=== PATIENT | female | born 1990 | race Caucasian/White ===

== ENCOUNTER → 2018-05-11 09:16 | Outpatient (CLI) | payer MEDICAID ==
[~2018-05-11] VITALS: Ht 152.4 cm; Wt 100.9 kg
[~2018-05-11 09:16] MED LIST: FAMOTIDINE10 MG PO; LOMOTIL 2.5-0.1 EAC1 PO; ZOFRAN ODT4 MG/UDTAB PO
[2018-05-11 09:20] VITALS: Ht 152.4 cm; Wt 100.9 kg
[2018-05-11 10:06] LABS: BASOPHILS 0.1 % (0-2); EOSINOPHILS 0.6 % (0-7); HEMATOCRIT 38.4 % (36.0-48.0); HEMOGLOBIN 12.9 g/dL (12-16); IMMATURE GRANULOCYTES 0.2 % (0-5); LYMPHOCYTES 15.3 % (15-50); MCH 28.5 pg (26.0-34.0); MCHC 33.6 g/dL (31.0-37.0); MCV 84.8 fL (80.0-100.0); MEAN PLATELET VOLUME 10.2 fL (7.4-10.4); MONOCYTES 6.8 % (2-11); PLATELET COUNT 242 10x3/uL (130-400); RBC 4.53 10x6/uL (4.00-5.40); RDW 13.8 % (11.5-14.5); WBC 8.2 10x3/uL (4.8-10.8)
[2018-05-11 10:13] LABS: ALKALINE PHOSPHATASE 49 U/L (46-116); ALT (SGPT) 13 U/L (10-68); BILIRUBIN - TOTAL 0.52 mg/dL (0.2-1.3); CALC OSMOLALITY 274 mosm/kg (275-300); CALCIUM 8.4 mg/dL (8.5-10.1); CARBON DIOXIDE 22.8 mmol/L (21.0-32.0); CHLORIDE - SERUM 103 mmol/L (98-107); CREATININE - SERUM 0.6 mg/dL (0.6-1.3); GLUCOSE 90 mg/dL (74-106); POTASSIUM - SERUM 3.1 mmol/L (3.5-5.1); PROTEIN - SERUM 7.5 g/dL (6.4-8.2); SODIUM 138 mmol/L (136-145); UREA NITROGEN 9 mg/dL (7-18); eGFR NON AFRICAN AMERICAN > 90 mL/min (90-120)
[2018-05-11 11:04] LABS: APPEARANCE SL CLDY (CLEAR); BACTERIA MODERATE /hpf (NONE SEEN); BILIRUBIN NEGATIVE (NEGATIVE); COLOR YELLOW (YELLOW); EPITHELIAL CELLS 0-5 /hpf (0-5); GLUCOSE NEGATIVE (NEGATIVE); KETONE LARGE mg/dL (NEGATIVE); MUCUS <1+ /lpf (NONE SEEN); NITRITE NEGATIVE (NEGATIVE); PROTEIN TRACE mg/dL (NEGATIVE); RED CELLS - URINE RARE /hpf (0-5); SPECIFIC GRAVITY 1.015 (1.005-1.020); UROBILINOGEN NORMAL (NORMAL); WHITE CELLS - URINE 0-5 /hpf (0-5)
[2018-05-11 12:35] VITALS: BP 140/98
== END | disposition home or self-care (01) ==
LOC: D.LDO 09:16 → D.ER 09:16 → EDSTATUS 11:40
PROVIDERS: Family Medicine
DX: O21.9 Vomiting of pregnancy, unspecified (principal); Z3A.17 17 weeks gestation of pregnancy

== ENCOUNTER → 2018-08-21 12:30 | Outpatient (CLI) | payer MEDICAID ==
[2018-05-11 09:20] VITALS: BMI 43.4
== END | disposition home or self-care (01) ==
LOC: D.LDO 12:30
PROVIDERS: ATTEND Obstetrics & Gynecology
DX: O26.899 Other specified pregnancy related conditions, unspecified trimester (principal)

== ENCOUNTER → 2018-08-25 08:55 | Outpatient (CLI) | payer MEDICAID ==
[2018-05-11 09:20] VITALS: BMI 43.4
== END | disposition home or self-care (01) ==
LOC: D.LDO 08:55
PROVIDERS: ATTEND Obstetrics & Gynecology
DX: O26.899 Other specified pregnancy related conditions, unspecified trimester (principal); Z3A.32 32 weeks gestation of pregnancy

== ENCOUNTER → 2018-08-29 11:12 | Outpatient (CLI) | payer MEDICAID ==
[2018-05-11 09:20] VITALS: BMI 43.4
== END | disposition home or self-care (01) ==
LOC: D.LDO 11:12
PROVIDERS: ATTEND Obstetrics & Gynecology
DX: O13.9 Gestational [pregnancy-induced] hypertension without significant proteinuria, unspecified trimester (principal)

== ENCOUNTER → 2018-09-01 08:59 | Outpatient (CLI) | payer MEDICAID ==
[~2018-09-01 08:59] MED LIST changes: +HYDROCODON-ACE1 EA10 PO; +IBUPROFEN600 MG PO
== END | disposition home or self-care (01) ==
LOC: D.LDO 08:59
DX: O10.913 Unspecified pre-existing hypertension complicating pregnancy, third trimester (principal); Z3A.33 33 weeks gestation of pregnancy

== ENCOUNTER → 2018-09-04 12:22 | Outpatient (CLI) | payer MEDICAID ==
[2018-05-11 09:20] VITALS: BMI 43.4
[~2018-09-04 12:22] MED LIST changes: -HYDROCODON-ACE1 EA10 PO; -IBUPROFEN600 MG PO
== END | disposition home or self-care (01) ==
LOC: D.LDO 12:22
PROVIDERS: ATTEND Obstetrics & Gynecology
DX: O10.013 Pre-existing essential hypertension complicating pregnancy, third trimester (principal); Z3A.34 34 weeks gestation of pregnancy

== ENCOUNTER → 2018-09-08 11:17 | Outpatient (CLI) | payer MEDICAID ==
[2018-05-11 09:20] VITALS: BMI 43.4
== END | disposition home or self-care (01) ==
LOC: D.LDO 11:17
PROVIDERS: ATTEND Obstetrics & Gynecology
DX: O16.3 Unspecified maternal hypertension, third trimester (principal); Z3A.31 31 weeks gestation of pregnancy

== ENCOUNTER → 2018-09-14 12:41 | Outpatient (CLI) | payer MEDICAID ==
[2018-05-11 09:20] VITALS: BMI 43.4
== END | disposition home or self-care (01) ==
LOC: D.LDO 12:41
PROVIDERS: ATTEND Obstetrics & Gynecology
DX: O16.3 Unspecified maternal hypertension, third trimester (principal); Z3A.35 35 weeks gestation of pregnancy

== ENCOUNTER 2018-10-01 01:58 | Inpatient (IN) | payer MEDICAID ==
[~2018-10-01] VITALS: Ht 152.4 cm; Wt 103.9 kg
[2018-10-01] VITALS (8 sets, daily range): BP systolic 93–128; BP diastolic 52–72; Ht 152.4 cm; Wt 103.9 kg
--- NOTE | 2018-10-01 01:48 | NUR ---
PAIN REASSESSMENT COMPLETED, STATES PAIN IS "A LITTLE BETTER." 08/12, DENIES NEEDS AT THIS TIME. CURRENTLY BREAST FEEDING.
[2018-10-01 02:42] LABS: HEMATOCRIT 34.9 % (36.0-48.0); HEMOGLOBIN 11.4 g/dL (12-16); MCH 26.1 pg (26.0-34.0); MCHC 32.7 g/dL (31.0-37.0); MCV 79.9 fL (80.0-100.0); MEAN PLATELET VOLUME 11.1 fL (7.4-10.4); RBC 4.37 10x6/uL (4.00-5.40); WBC 8.8 10x3/uL (4.8-10.8)
[2018-10-01 02:43] LABS: APPEARANCE CLEAR (CLEAR); BILIRUBIN NEGATIVE (NEGATIVE); COLOR YELLOW (YELLOW); GLUCOSE NEGATIVE (NEGATIVE); KETONE SMALL mg/dL (NEGATIVE); NITRITE NEGATIVE (NEGATIVE); PROTEIN NEGATIVE (NEGATIVE); UROBILINOGEN NORMAL (NORMAL)
--- NOTE | 2018-10-01 05:23 | NUR ---
REC'D BACK TO ROOM FROM RECOVERY ROOM. VSS. FUNDUS FIRM, MIDLINE AND U1 WITH SMALL AMT RUBRA LOCHIA, NO CLOTS NOTED. PAIN 3/10, INCISIONAL BURNING AND STINGING, ABD SORENESS AND ACHING. MINIMAL SENSATION AND ROM OF BLE, ABLE TO MOVE BILATERAL FEET. SCD'S ON BLE. 1100 MLS CLEAR LIGHT YELLOW EMPTIED FROM CARMONA. INCISION WELL APPROXIMATED WITH GLUE INTACT, NO DRAINAGE NOTED. PLAN OF CARE DISCUSSED WITH PT AND SPOUSE. NBN CONTACTED AND PT UPDATED ON INFANT.
--- NOTE | 2018-10-01 05:34 | NUR ---
PAIN 3/10, ABD ACHING/CRAMPING/SORENESS AND INCISIONAL BURNING AND STINGING. TORADOL GIVEN PER ORDER AND REQUEST. PT QUESTIONS RN REGARDING RUG CUTTER HELPER, NO ORDERS CURRENTLY IN CHART. PT STATES THAT DR. CANO TOLD HER SHE WOULD HAVE RUG CUTTER HELPER, WILL CONTACT DR. CANO FOR ADDITIONAL ORDERS.
--- NOTE | 2018-10-01 05:43 | NUR ---
DR. CANO PAGED WITH IMMEDIATE CALLBACK REGARDING ORDERS FOR PAIN MANAGEMENT. ORDERS REC'D.
--- NOTE | 2018-10-01 05:58 | NUR ---
PAIN 6/10, INCISIONAL BURNING AND STINGING, ABD CRAMPING/SORENESS. DILAUDAD RAILROAD CAR REPAIR SUPERVISOR INITIATED. PT INSTRUCTED ON USE AND VERBALIZES UNDERSTANDING. DENIES QUESTIONS. REPORTS THAT SHE HAS HAD RAILROAD CAR REPAIR SUPERVISOR'S WITH PREVIOUS SURGERIES. INFANT TO BEDSIDE WITH NOMI DOWELL RN. PREPARING TO BREASTFEED.
--- NOTE | 2018-10-01 06:34 | NUR ---
ADMISSION ASSESSMENT COMPLETED. PT CURRENTLY ATTEMPTING TO BREASTFEED. VSS. FUNDUS REMAINS FIRM, MIDLINE AND U1 WITH SMALL AMT RUBRA LOCHIA, NO CLOTS NOTED. REFUSES ICE PACK AT THIS TIME. BED IN LOW POSITION WITH UPPER SIDE RAILS RAISED X2. CALL LIGHT AND PHONE WITHIN REACH. WILL CONTINUE TO MONITOR AND ASSIST PRN.
--- NOTE | 2018-10-01 07:42 | NUR ---
SHIFT ASSESSMENT COMPLETED AT THIS TIME. PT IS AAOX3. HR-RRR, PPP, BREATH SOUNDS CLEAR & UNLABORED X2, BOWEL SOUNDS ACTIVE X4. FUNDUS FIRM, ML, U/1. SCANT LOCHIA RUBRA NOTED TO PERIPADS. PIV NOTED TO LT WRIST C/D/I, WITHOUT ERYTHEMA OR EDEMA NOTED TO SITE. NS WITH 20 U PITOCIN INFUSING AT 125ML/HR. DILAUDID BRICKMASON CONTRACTOR IN PLACE. SCD'S IN PLACE BILATERALLY AND MACHINE FUNCTIONING PROPERLY. CL DIET TRAY DELIVERED. VSS. INCISION TO ABD C/D/I. PERIPAD PLACED OVER SITE. PT DENIES FURTHER NEEDS. BED LOW, WHEELS LOCKED, CALL LIGHT AND PHONE WITHIN REACH, SIDE RAILS UP X2.
--- NOTE | 2018-10-01 08:20 | NUR ---
ROUNDS MADE. PT LYING ON BACK WITH HOB 45 DEGREES. DENIES PAIN OR NEEDS AT THIS TIME. FAMILY IN ROOM X5. NO NEEDS VOICED.
--- NOTE | 2018-10-01 08:50 | NUR ---
Stephanie Dela Cruz 10/[birth year] S: Patient states she delivered at 3 something this morning. Patient states this is her second baby, she did breastfeed her first child for over 15 months. She feels like her first child was easier then the new baby because she doesn't open her mouth wide for feedings and baby is tired. So she has been working on trying to get her to correctly latch. Verbally agrees to try different positions to help latch and to ask nursery staff for help as needed. O: Patient semi sitting up in bed speaking with family member in room sleep on sofa, and infant crib at bedside sleeping. Congratulated on delivery and asked patient to tell me how things are going with . Praised for . Informed patient takes time, practice, and patience in the beginning. It is normal for infant to be tired shortly after delivery and working on latch is normal also. For next feeding please let nursery staff know so we can help you latch infant. Explained breastmilk composition, benefits of skin to skin, how to correctly hold for feedings, positions, infant feeding cues, and the importance of practicing responsive feeding which will help with establishing her milk supply. A: Patient expresses concern for infant not wanting to open her mouth wide with latching. P: Continue to promote during hospital visit. Patient will ask for help with latching from nursery staff. Nallely Lyon, CLC
--- NOTE | 2018-10-01 10:02 | NUR ---
ROUNDS MADE. PT DENIES NEEDS AT THIS TIME. PIV CONTINUES TO INFUSE WITHOUT DIFFICULTY. WILL CONTINUE TO MONITOR.
--- NOTE | 2018-10-01 12:48 | NUR ---
CURRENT PITOCIN INFUSION COMPLETE. OLD BAG DOWN, NEW BAG UP TO PRESENT TUBING SET TO INFUSE AT 125ML/HR.
[2018-10-01 12:50] LABS: BASOPHILS 0.1 % (0-2); EOSINOPHILS 0.4 % (0-7); IMMATURE GRANULOCYTES 0.2 % (0-5); LYMPHOCYTES 20.7 % (15-50); MCH 25.3 pg (26.0-34.0); MCHC 31.5 g/dL (31.0-37.0); MCV 80.3 fL (80.0-100.0); MEAN PLATELET VOLUME 10.4 fL (7.4-10.4); MONOCYTES 7.8 % (2-11); NEUTROPHILS 70.8 % (40-80); WBC 8.9 10x3/uL (4.8-10.8)
[2018-10-01 12:52] LABS: HEMATOCRIT 27.3 % (36.0-48.0); HEMOGLOBIN 8.6 g/dL (12-16); PLATELET COUNT 186 10x3/uL (130-400)
--- NOTE | 2018-10-01 13:42 | NUR ---
PT TILTED TO RT, PROPPED WITH PILLOWS. DENIES NEEDS AT THIS TIME.
--- NOTE | 2018-10-01 14:16 | NUR ---
I.S. PROVIDED AND TEACHING PROVIDED WITH RETURN DEMONSTRATION TO 1500. PT DENIES PAIN AT THIS TIME. FUNDUS REMAINS FIRM, ML. SMALL LOCHIA RUBRA TO PERIPADS. NO NEEDS VOICED.
--- NOTE | 2018-10-01 16:02 | NUR ---
ROUNDS MADE. GUESTS IN ROOM X5. PT DENIES PAIN OR NEEDS. TOLERATING CL DIET WELL. CARMONA DRAINING TO GRAVITY. WILL CONTINUE TO MONITOR PRN.
--- NOTE | 2018-10-01 17:00 | NUR ---
ROUNDS MADE. PT LYING IN LT TILT, PROPPED WITH PILLOWS. PERIPADS AND CHUCKS CHANGED. PT DENIES PAIN OR FURTHER NEEDS.
--- NOTE | 2018-10-01 18:28 | NUR ---
PT SITTING UP IN BED AAOX3 WITH SKIN TO SKIN. 1200ML CLEAR YELLOW URINE EMPTIED FROM CARMONA BAG. PT DENIES PAIN OR NEEDS. WILL CONTINUE TO MONITOR.
--- NOTE | 2018-10-01 19:37 | NUR ---
SITTING UP IN BED WITH SKIN TO SKIN. V/S TAKEN WITH TEMP OF 100.0 ORALLY, PT REPORTS THAT SHE FEELS HOT AND HAS BEEN HOT "ALL DAY." STATES THAT EVERY TIME ROOM TEMP WAS DECREASED, NBN RN WOULD INCREASE TEMP TO TEMPS UP. THERMOSTAT CURRENTLY SET ON 85. M. KEEGAN NATARAJAN NBN AT BEDSIDE PERFORMING V/S. PER KEEGAN DOE INFANT TEMP IS WNL AND ROOM TEMP CAN BE DECREASED. BLANKET REMOVED FROM PT AND SHEET LEFT COVERING HER. ROOM TEMP DECREASED TO 75. FUNDUS FIRM, MIDLINE AND U1 WITH SMALL AMT RUBRA LOCHIA. PAIN CURRENTLY 6/10, INCISIONAL BURNING AND STINGING AND ABD "SORENESS." REPORTS THAT SHE HASN'T USED [employer] ELECTRONICS TECHNICIAN D/T CAUSING DROWSINESS, ENCOURAGED USE AND PT USES [employer] ELECTRONICS TECHNICIAN. PT REQUESTING TO HAVE CARMONA REMOVED AND GET OOB, STATES THAT SHE DISCUSSED WITH PREVIOUS RN AND WAS TOLD SHE WOULD HAVE TO STAY IN BED UNTIL MD ROUNDED IN THE MORNING. DISCUSSED WITH PT COMPLETING ASSESSMENT AND THIS RN CONTACTING MD CEMENT FITTINGS MAKER FOR ORDERS, PT AGREEABLE AND VERBALIZES UNDERSTANDING. BOWEL SOUNDS PRESENT IN ALL 4 QUADRANTS, HYPOACTIVE. PT REPORTS THAT SHE FEELS LIKE SHE NEEDS TO PASS FLATUS BUT HAS NOT BEEN ABLE TO. LOWER TRANSVERSE ABD INCISION WELL APPROXIMATED WITH GLUE IN PLACE, NO DRAINAGE NOTED. PERIPAD PLACED OVER INCISION AND PT EDUCATED ON INCISIONAL CARE, VERBALIZES UNDERSTANDING. MILD 2+ BLE EDEMA AND 1+ BUE EDEMA. 350 MLS EMPTIED FROM CARMONA, DRAINING TO BEDSIDE DRAINAGE. SCD'S ON BLE. ENCOURAGED TO USE INCENTIVE SPIROMETER, DONE WITH GOOD EFFORT. BED IN LOW POSITION WITH UPPER SIDE RAILS RAISED X2. CALL LIGHT AND PHONE WITHIN REACH. WILL CONTINUE TO MONITOR AND ASSIST PRN.
--- NOTE | 2018-10-01 19:58 | NUR ---
DR. TELLO CONTACTED REGARDING PT REQUEST TO HAVE CARMONA REMOVED AND TO GET OOB. ORDERS REC'D.
--- NOTE | 2018-10-01 20:32 | NUR ---
C/O PAIN 7/10 ABD ACHING, SORENESS, AND INCISIONAL BURNING AND STINGING. ICE PACK PROVIDED. DISCUSSED WITH PT NEW ORDERS FOR NORCO. VERBALIZES UNDERSTANDING. NORCO AND TORADOL GIVEN PER ORDER.
--- NOTE | 2018-10-01 20:45 | NUR ---
PLAN OF CARE DISCUSSED WITH PT, VERBALIZES UNDERSTANDING AND AGREEMENT. PIV SL. MATHEW D/C'D PER ORDER. PAIN 7/10, INCISIONAL BURNING AND STINGING, ABD SORENESS ACHING AND CRAMPING. TORADOL AND NORCO GIVEN PER ORDER. ICE PACK PROVIDED PER PT REQUEST. ICE WATER PROVIDED. DENIES ADDITIONAL NEEDS AT THIS TIME. INSTRUCTED ON USING CALL LIGHT FOR ASSISTANCE OOB AND NOT GETTING UP WITHOUT ASSISTANCE, VERBALIZES UNDERSTANDING. TEMP 99.4 CURRENTLY. BED IN LOW POSITION WITH UPPER SIDE RAILS RAISED X2. CALL LIGHT AND PHONE WITHIN REACH. WILL CONTINUE TO MONITOR AND ASSIST PRN.
--- NOTE | 2018-10-01 21:03 | NUR ---
PAIN REASSESSMENT COMPLETED, PAIN 2-07/12. STATES THAT PAIN IS MUCH BETTER SINCE RECIEVING TORADOL AND NORCO. EDUCATED ON MEDS AND POSSIBLE SIDE EFFECTS, VERBALIZES UNDERSTANDING AND DENIES QUESTIONS. CURRENTLY NURSING , STATES THAT SHE WOULD LIKE TO AMBULATE IN ROOM WHEN SHE FINISHES BF, ENCOURAGED TO CALL RN USING CL FOR ASSISTANCE, VERBALIZES UNDERSTANDING. BED IN LOW POSITION WITH UPPER SIDE RAILS RAISED X2. CALL LIGHT AND PHONE WITHIN REACH.
--- NOTE | 2018-10-01 21:04 | NUR ---
1.4 MG DILAUDAD JD EDWARDS DEVELOPER WASTED WITH Neli GALARZA RN IN SINK.
--- NOTE | 2018-10-01 21:30 | NUR ---
UP TO VOID WITH STANDBY ASSIST. C/O DIZZINESS INITIALLY WHEN SITTING ON EDGE OF BED. VALSALVA NOTED, ENCOURAGED TO CONTINUE BREATHING, REPORTS AFTER SITTING UP ON EDGE OF BED, DIZZINESS IS GONE. AMBULATED TO BATHROOM WITH STANDBY ASSIST, STEADY GAIT NOTED, DENIES DIZZINESS DURING AMBULATION. VOIDS 650 MLS CLEAR LIGHT YELLOW URINE IN HAT, SMALL WIL SIZED CLOT NOTED. PERICARE DONE PER PT, PERIPAD AND PANTIES PROVIDED. GOWN AND LINENS CHANGED. PT REPORTS THAT SHE WANTS TO WAIT TO SHOWER UNTIL HER MOM IS HERE IN THE MORNING. BACK TO BED INCENTIVE SPIROMETER USED BY PT WITH GOOD EFFORT. SCD'S REFUSED AT THIS TIME. HANDED TO MOM. ICE WATER PROVIDED. ICE PACK PROVIDED. INSTRUCTED ON INCISIONAL CARE AND KEEPING CLEAN AND DRY, VERBALIZES UNDERSTANDING AND DENIES QUESTIONS. PERIPAD PLACED OVER INCISION. BED IN LOW POSITION WITH UPPER SIDE RAILS RAISED X2. CALL LIGHT AND PHONE WITHIN REACH. S/O AT BEDSIDE, SUPPORTIVE AND ATTENTIVE TO PT AND NEEDS.
[2018-10-02 00:41] VITALS: BP 114/57
--- NOTE | 2018-10-02 00:41 | NUR ---
VSS. UP TO VOID, VOIDED 700 MLS CLEAR LIGHT YELLOW URINE IN HAT. NO CLOTS NOTED. PERICARE DONE PER PT. AMBULATED FROM ROOM TO NURSES STATION WITH STANDBY ASSIST OF RN, STEADY GAIT NOTED. BACK TO BED. FUNDUS FIRM MIDLINE AND U2 WITH SCANT RUBRA LOCHIA, NO CLOTS. INCISION REMAINS WELL APPROXIMATED WITH GLUE INTACT. PERIPAD PLACED OVER INCISION AND ICE PACK PROVIDED PER REQUEST. BED IN LOW POSITION WITH UPPER SIDE RAILS RAISED X2. CALL LIGHT AND PHONE WITHIN REACH. PAIN 4-5/10, INCISIONAL BURNING AND STINGING, DENIES NEED FOR INTERVENTION AT THIS TIME. SCD'S PLACED TO BLE.
--- NOTE | 2018-10-02 01:10 | NUR ---
CALLS VIA CL, C/O PAIN 09/11, REQUESTS NORCO, GIVEN PER REQUEST. DENIES ADDITIONAL NEEDS. LINENS PROVIDED TO S/O. SKIN TO SKIN. BED IN LOW POSITION WITH UPPER SIDE RAILS RAISED X2. CALL LIGHT AND PHONE WITHIN REACH.
--- NOTE | 2018-10-02 02:37 | NUR ---
IN HIGH FOWLERS POSITION WITH IN ARMS AT BREAST, EYES CLOSED, AROUSED TO VOICE. REQUEST INFANT BE TAKEN TO NBN D/T "BEING SO TIRED I JUST CAN'T HOLD MY EYES OPEN ANYMORE." TO NBN PER PT REQUEST. C/O PAIN 6/10, INCISIONAL BURNING AND STINGING AND ABD SORENESS AND ACHING, REQUEST TORADOL, GIVEN PER PT REQUEST. ICE WATER PROVIDED. ICE PACK PLACE TO INCISION PER PT REQUEST. SCD'S ON BLE, DENIES ADDITIONAL NEEDS. BED IN LOW POSITION WITH UPPER SIDE RIALS RAISED X2. CALL LIGHT AND PHONE WITHIN REACH. WILL CONTINUE TO MONITOR AND ASSIST PRN.
--- NOTE | 2018-10-02 03:10 | NUR ---
PAIN REASSESSMENT COMPLETED. PT RESTING WITH EYES CLOSED IN SEMI-FOWLERS POSITION. DOES NOT OPEN EYES WHEN DOOR IS OPENED, RESPIRATIONS REGULAR AND UNLABORED, NO S/S OF DISTRESS NOTED. SCD'S REMAIN ON BLE. BED IN LOW POSITION WITH UPPER SIDE RAILS RAISED X2. CALL LIGHT AND PHONE WITHIN REACH, WILL CONTINUE TO MONITOR AND ASSIST PRN.
[2018-10-02 05:09] VITALS: BP 98/52
--- NOTE | 2018-10-02 05:09 | NUR ---
C/O CONSTANT HEADACHE, 11/11. NORCO GIVEN PER PT REQUEST. DENIES INCREASE HEADACHE WHEN SITTING OR AMBULATING AND REPORTS THAT HEADACHE INTENSITY DOES NOT DECREASE WHEN LAYING FLAT. DENIES VISION CHANGES, NAUSEA, AND EPIGASTRIC PAIN. VSS. REPORTS THAT SHE HAS HAD HEADACHED "OFF AND ON WHILE I WAS AND IT FEELS THE SAME WAY." COKE AND ICE WATER PROVIDED. ICE PACK REMOVED. DENIES NEED TO VOID, BLADDER NON DISTENDED. FUNDUS FIRM, MIDLINE AND U1 WITH SMALL RUBRA LOCHIA, NO CLOTS NOTED. INCENTIVE SPIROMETER USE WITH GOOD EFFORT. SCD'S REMAIN ON BLE. DENIES ADDITIONAL NEEDS. INFANT IN NBN. BED IN LOW POSITION WITH UPPER SIDE RAILS RAISED X2. CALL LIGHT AND PHONE WITHIN REACH. WILL CONTINUE TO MONITOR AND ASSIST PRN.
--- NOTE | 2018-10-02 06:02 | NUR ---
RESTING QUIETLY WITH EYES CLOSED, RESPIRATIONS REGULAR AND UNLABORED, NO S/S OF DISTRESS NOTED. BED IN LOW POSITION WITH UPPER SIDE RAILS RAISED X2. CALL LIGHT AND PHONE WITHIN REACH. WILL CONTINUE TO MONITOR AND ASSIST PRN.
--- NOTE | 2018-10-02 06:59 | NUR ---
PATIENT AMBULATED TO BATHROOM WITH STEADY GAIT. PATIENT VOIDED 900 CC'S OF CLEAR YELLOW URINE. PATIENT AMBULATED BACK TO BED WITH STEADY GAIT. DENIES ANY FURTHER NEEDS. BED IN LOWEST POSITION, SIDE RAILS UP X 2, C/L AND WATER WITHIN REACH.
[2018-10-02 07:17] LABS: RAPID PLASMA REAGIN Non Reactive (Non Reactive)
--- NOTE | 2018-10-02 07:18 | NUR ---
DR. CANO NOTIFIED OF PT C/O HEADACHE. ORDERS REC'D TO HAVE ANESTHESIA EVAL PT. Neli LEONARDO RN AND Laney LAMAS RN NOTIFIED OF NEW ORDER.
[2018-10-02 07:20] LABS: BASOPHILS 0.1 % (0-2); EOSINOPHILS 1.3 % (0-7); HEMATOCRIT 26.6 % (36.0-48.0); HEMOGLOBIN 8.5 g/dL (12-16); IMMATURE GRANULOCYTES 0.2 % (0-5); LYMPHOCYTES 14.8 % (15-50); MCH 25.6 pg (26.0-34.0); MCV 80.1 fL (80.0-100.0); MEAN PLATELET VOLUME 10.6 fL (7.4-10.4); NEUTROPHILS 76.6 % (40-80); PLATELET COUNT 202 10x3/uL (130-400); RBC 3.32 10x6/uL (4.00-5.40); RDW 14.1 % (11.5-14.5); WBC 9.8 10x3/uL (4.8-10.8)
--- NOTE | 2018-10-02 08:27 | NUR ---
Stephanie Dela Cruz [birth year] S: Patient states baby did great with her first feeding, 15 minutes on each breast. She and baby are working on together. She feels like they both are doing good. Verbally agrees to ask for help as needed from nursery staff. O: Patient sitting up in bed attempting to nurse infant. awake and routing at the breast. Observed infant position. is in cradle position, her body is upright, and her face is turned sideways trying to latch to the breast. Recommend patient turn tummy to tummy this will make it easier for to latch. Patient placed infant in laid back position on the left breast at 8:31. was turned tummy to tummy, directly in front of the breast, mouth 140 degrees, round cheeks, sucking in a rocking motion. Infant and patient appear comfortable, no discomfort expresses. Explained the importance of making sure latch is correct. Explained normal feeding patterns. Patient nipples show no signs of redness or trauma. Asked if any questions or concerns? Praised for . Please ask for help as needed from nursery staff with . A: Patient in process of latching infant for feeding. Expresses positive feedback with . Working on latching . P: Continue to promote during hospital visit. Nallely Lyon, CLC
[2018-10-02 08:30] VITALS: BP 109/65
--- NOTE | 2018-10-02 08:30 | NUR ---
AM ASSESSMENT COMPLETED CHARTED ON FLOWSHEET, VSS. PT CONINTUE TO COMPLAIN OF HEAD THAT IS LOCATED BEHIND HER RIGHT EYE AND TOP OF HER HEAD. DOES NOT CHANGE INTENSITY WITH HER POSITION. FUNDUS FIRM AT U/U, MIDLINE WITH NO CLOTS. LIGHT/SCANT BLEEDING. BIKINI INCISION CLEAN AND DRY. SALINE LOCK TO LEFT HAND PATIENT WITH 5ML NS FLUSHED EASILY. RATES PAIN AT 5/10 AND IS AGREEABLE TO PAIN AT THIS TIME. SIDE RAILS UP X 2 WITH PHONE AND CALL LIGHT IN REACH.
--- NOTE | 2018-10-02 09:30 | NUR ---
PAIN MED GIVEN SCANNED TO EMAR. IN CRIB AT BEDSIDE. CALLLIGHT IN REACH.
--- NOTE | 2018-10-02 09:30 | NUR ---
I have reviewed this patient and I concur with the Shift Assessment completed by the Licensed Practical Nurse today this shift.
--- NOTE | 2018-10-02 10:15 | NUR ---
PAIN REASSESSMENT, SHE STATES THAT SHE CAN STILL "DULL" HEADACHE BUT IS ABLE TO SIT UP, CURRENTLY HAS INFANT TO BREAST WHILE TALKING ON PHONE. RATES AT 2/10, CALL LIGHT IN REACH
--- NOTE | 2018-10-02 11:48 | NUR ---
MENU FAXED TO KITCHEN PER PT REQUEST. BONDING WITH , DENIES NEEDS AT THIS TIME.
--- NOTE | 2018-10-02 13:50 | NUR ---
pt sitting up on side of bed without complaint of dizziness. saline lock removed intact per pt request.
--- NOTE | 2018-10-02 14:00 | NUR ---
Pt calls out requesting towels to shower. This rn to room with requested towels and bed linens. Pt mother assisted with shower, bed linens changed at this time. Dressed in her clothing, rates pain at 4/10 and understands pain med can be given at 1430. Amb with her mother to get ice and then back to room. infant in crib at bedside with spouse present.
--- NOTE | 2018-10-02 14:35 | NUR ---
pain meds given as scanned to emar. rates pain at 7/10 at incision site. denies headache at this time. lights dimmed, side rails up x 2 with call light in reach.
--- NOTE | 2018-10-02 15:15 | NUR ---
pain reassessment, rates at 07/12. to breast at this time. no needs voiced. call light in reach. =
--- NOTE | 2018-10-02 16:45 | NUR ---
large ice water per request. no other needs at this time.
--- NOTE | 2018-10-02 18:07 | NUR ---
PAIN MED GIVEN SCANNED TO EMAR. PT COMPLAINS THAT HEADACHE IS RETURNING BUT NOT BAD IT WAS THIS AM.
--- NOTE | 2018-10-02 19:08 | NUR ---
BEDSIDE REPORT REC'D FROM Neli LEONARDO RN. PAIN REASSESSMENT COMPLETED. 06/14, DENIES NEED FOR INTERVENTION. CONVERSING WITH VISITORS, IN VISITORS ARMS. DENIES NEEDS. BED IN LOW POSITION WITH UPPER SIDE RAILS RAISED X2. CALL LIGHT AND PHONE WITHIN REACH. WILL CONTINUE TO MONITOR AND ASSIST PRN.
[2018-10-02 20:23] VITALS: BP 126/65
--- NOTE | 2018-10-02 20:23 | NUR ---
VSS AT THIS TIME. PT REQUEST TO VISIT WITH FAMILY PRIOR TO ASSESSMENT BEING DONE. SITTING ON EDGE OF BED CONVERSING WITH VISITORS AND LAUGHING OCCASIONALLY. DENIES NEEDS. BED IN LOW POSITION, CALL PLACED WITHIN PT REACH. WILL CONTINUE TO MONITOR AND ASSIST PRN.
--- NOTE | 2018-10-02 21:30 | NUR ---
REMAINS SITTING ON EDGE OF BED CONVERSING WITH SAME VISITORS. DENIES NEEDS AT THIS TIME. STATES THAT VISITORS WILL BE LEAVING SOON AND SHE NOTIFY RN WHEN VISITORS LEAVE. CALL LIGHT REMAINS WITHIN PT REACH. BED IN LOW POSITION.
--- NOTE | 2018-10-02 21:43 | NUR ---
SHIFT ASSESSMENT COMPLETED PER FLOW SHEET. FUNDUS FIRM, MIDLINE AND U2 WITH SCANT RUBRA LOCHIA, NO CLOTS NOTED. DENIES PASSING CLOTS. LOWER TRANSVERSE ABD INCISION WELL APPROXIMATED WITH GLUE INTACT, SMALL AMT SEROUS DRAINAGE NOTED ON THE RIGHT END OF INCISION TO PERIPAD. CLEANSED WITH ANTIBACTERIAL SOAP AND PATTED DRY, NEW PERIPAD PLACED. INSTRUCTED ON INCISIONAL CARE AND S/S OF INFECTION, VERBALIZES UNDERSTANDING. REPORTS THAT SHE IS VOIDING WITHOUT DIFFICULTY AND PASSING FLATUS. SIMETHICONE GIVEN PER REQUEST. STATES THAT SHE FEELS NEED TO PASS MORE FLATUS BUT IS UNABLE TO DO SO, ENCOURAGED TO AMBULATE ON UNIT AND IN ROOM. ICE WATER PROVIDED. REFUSES SCD'S. PLAN OF CARE DISCUSSED, VERBALIZE UNDERSTANDING AND AGREEMENT AND DENY NEEDS. SPOUSE REMAINS AT BEDSIDE, SUPPORTIVE AND ATTENTIVE TO PT AND NEEDS. BED IN LOW POSITION WITH UPPER SIDE RAILS RAISED X2. CALL LIGHT AND PHONE WITHIN REACH. WILL CONTINUE TO MONITOR AND ASSIST PRN.
--- NOTE | 2018-10-02 22:10 | NUR ---
AMBULATORY IN LI WITH SPOUSE. STEADY GAIT NOTED. DENIES NEEDS.
--- NOTE | 2018-10-02 22:45 | NUR ---
RESTING WITH EYES CLOSED IN SEMI-FOWLERS POSITION. RESPIRATIONS REGULAR AND UNLABORED, NO S/S OF DISTRESS NOTED. SPOUSE RESTING ON COUCH AT BEDSIDE, BED IN LOW POSITION WITH UPPER SIDE RAILS RAISED X2. CALL LIGHT AND PHONE WITHIN REACH. WILL CONTINUE TO MONITOR AND ASSIST PRN.
--- NOTE | 2018-10-02 23:27 | NUR ---
CONTINUES TO REST IN SEMI-FOWLERS POSITION WITH EYES CLOSED. RESPIRATIONS REGULAR AND UNLABORED, NO S/S OF DISTRESS NOTED. SPOUSE RESTING ON COUCH AT BEDSIDE. BED IN LOW POSITION WITH UPPER SIDE RAILS RAISED X2. CALL LIGHT AND PHONE WITHIN REACH. WILL CONTINUE TO MONITOR.
[2018-10-03 00:58] VITALS: BP 104/52
--- NOTE | 2018-10-03 00:58 | NUR ---
VSS. FUNDUS REMAINS FIRM, MIDLINE AND U2 WITH SMALL AMT RUBRA LOCHIA, NO CLOTS NOTED. PAIN 5/10, REQUEST NORCO AND MOTRIN TOGETHER, PROVIDED PER REQUEST. ICE WATER PROVIDED. DENIES ADDITIONAL NEEDS. INFANT HANDED TO PT FOR BREAST FEEDING. BED IN LOW POSITION WITH UPPER SIDE RAILS RAISED X2. CALL LIGHT AND PHONE WITHIN REACH. WILL CONTINUE TO MONITOR AND ASSIST PRN.
--- NOTE | 2018-10-03 01:40 | NUR ---
INFANT. PAIN 05/14. DENIES NEEDS. BED IN LOW POSITION WITH UPPER SIDE RAILS RAISED X2. CALL LIGHT AND PHONE WITHIN REACH. WILL CONTINUE TO MONITOR AND ASSIST PRN.
[2018-10-03 04:42] VITALS: BP 109/54
--- NOTE | 2018-10-03 04:42 | NUR ---
VSS. FUNDUS FIRM, MIDLINE AND U2 WITH SMALL AMT RUBRA LOCHIA, NO CLOTS NOTED. INSTRUCTED ON BULB SYRINGE USE WITH , DEMONSTRATED UNDERSTANDING. PAIN 2/10, CONSTANT HEADACHE AND ABD SORENESS, DENIES NEED FOR INTERVENTION AT THIS TIME. BED IN LOW POSITION WITH UPPER SIDE RAILS RAISED X2. CALL LIGHT AND PHONE WITHIN REACH. WILL CONTINUE TO MONITOR.
--- NOTE | 2018-10-03 05:52 | NUR ---
RESTING QUIETLY WITH EYES CLOSED IN SEMI-FOWLERS POSITION. RESP REGULAR AND UNLABORED, NO S/S OF DISTRESS NOTED. BED IN LOW POSITION WITH UPPER SIDE RAILS RAISED X2. CALL LIGHT AND PHONE WTIHIN REACH.
--- NOTE | 2018-10-03 07:40 | NUR ---
ASSUME CARE OF THIS PATIENT AT THIS TIME. SITTING UP IN BED EATING BREAKFAST. C/O 4/10 INCISION BURNING AND RIGHT SIDED DULL CALLES (4-6). DESIRES NORCO AND MOTRIN AT SAME TIME. NORCO 10 MG AND MOTRIN 600 MG GIVEN PO FOR RELIEF. HAS BEEN DRINKING PLENTY OF WATER, DENIES FREQUENT CAFFEINE USE. HX OF CALLES DURING BUT NOT BEFORE , CALLES IS WORSE WITH LAYING DAY AND SEEMS TO GET BETTER WHEN MOVING AND OUT OF BED. WAS EVALUATED YESTERDAY FOR SPINAL CALLES. RH POSITIVE, RUBELLA IMMUNE, NON SMOKER. WILL CHECK TDAP STATUS. FOB IN ROOM HOLDING INFANT. WILL COMPLETE SHIFT ASSESSMENT AFTER EATING. NO ADDITIONAL REQUESTS. SIDERAILS UP X 2, CALL LIGHT IN REACH.
--- NOTE | 2018-10-03 09:35 | NUR ---
SITTING UP IN BED . SAYS HER PAIN IS BETTER 1/10 BOTH CALLES AND INCISIONAL PAIN. NOW C/O FEELING "STABBING PAIN" URETHRA/BLADDER WHILE LAYING IN BED BUT NOTICED WORSE AT END OF VOIDING. TALKED TO KEVAN BANUELOS ORDER. PT NOTIFIED AND CLEAN CATCH CONTAINER IN ROOM TO COLLECT NEXT VOID. INFORMED PT THAT MD WILL BE IN FOR ROUNDS LATER THIS AM. TO CALL THIS RN WHEN DONE SO SHIFT ASSESSMENT CAN BE COMPLETED. VERBALIZED UNDERSTANDING. SIDERAILS UP X 2, CALL LIGHT IN REACH.
--- NOTE | 2018-10-03 09:41 | NUR ---
PER OB RECORDS, RECEIVED TDAP 07/24/2018.
[2018-10-03 09:49] VITALS: BP 123/64
--- NOTE | 2018-10-03 09:49 | NUR ---
SHIFT ASSESSMENT COMPLETED. DENIES NEEDING ANYTHING. DISCUSSED CARE OF BREAST AND RELIEF MEASURES FOR NIPPLE SORENESS. DISCUSSED CARE OF INCISION. WILL OBTAIN CC UA WHEN PT VOIDS. NO SPECIFIC REQUESTS. ANTICIPATE DC HOME TODAY. SIDE RAILS UP X 2, CALL LIGHT IN REACH. IN ARMS OF FOB. ENCOURAGED OOB AND AMBULATION.
--- NOTE | 2018-10-03 11:50 | NUR ---
DR CANO VISITED PATIENT.
--- NOTE | 2018-10-03 12:00 | NUR ---
RESULTS OF UA GIVEN TO Arron WESTBROOK TO DO RUN CULTURE.
[2018-10-03 12:04] LABS: APPEARANCE CLOUDY (CLEAR); COLOR YELLOW (YELLOW)
[2018-10-03 12:05] LABS: BILIRUBIN NEGATIVE (NEGATIVE); GLUCOSE NEGATIVE (NEGATIVE); KETONE NEGATIVE (NEGATIVE); NITRITE NEGATIVE (NEGATIVE); PROTEIN 1+ mg/dL (NEGATIVE); RED CELLS - URINE 25-50 /hpf (0-5); UROBILINOGEN NORMAL (NORMAL)
[2018-10-03 12:06] LABS: BACTERIA FEW /hpf (NONE SEEN); EPITHELIAL CELLS 0-5 /hpf (0-5)
[2018-10-03] MEDS ORDERED: IBUPROFEN600 MG PO (13:41)
[2018-10-03] MEDS ORDERED: HYDROCODON-ACE1 EA10 PO (13:41)
--- NOTE | 2018-10-03 14:09 | NUR ---
CURRENTLY INFANT. REQUESTED PAIN MEDICATION FOR 6-7/10 INCISIONAL BURNING AND 4-5/10 HEADACHE. DESIRES TO TAKE BOTH MOTRIN AND NORCO STATES "THEY WORK BEST TOGETHER, ONE FOR MY HEADACHE AND ONE FOR MY INCISION. VISITORS IN ROOM. SPOUSE WENT TO WORK "FOR A FEW HOURS". HE WILL BE BACK TO PICK HER UP. ALSO HAS DC ORDERS. SIDERAILS UP X 2, CALL LIGHT IN REACH.
--- NOTE | 2018-10-03 15:08 | NUR ---
DC INSTRUCTIONS COMPLETED, TO INCLUDE POST OP CARE, S&S INFECTION, DANGER SIGNS, PP DEPRESSION, MEDICATION ADMINISTRATION, /BREASTCARE AND FOLLOW-UP. NO SPECIFIC QUESTIONS ASKED. PRESCRIPTIONS AND INSTRUCTIONS GIVEN TO PATIENT. NURSERY RN NOTIFIED OF PT DC. WILL DC . FOB IN ROOM. TO CALL WHEN READY TO BE DC'D TO CAR. CURRENT PAIN IMPROVED TO 2-3/10 FOR CALLES AND INCISION.
--- NOTE | 2018-10-03 15:45 | NUR ---
PT TAKEN OUT VIA W/C TO PRIVATE VEHICLE FOR D/C TO HOME. INFANT BUCKLED INTO CARSEAT BY PARENTS. PT SIG OTHER TO DRIVE HOME.
== END 2018-10-03 15:45 | disposition home or self-care (01) | DRG 785 ==
LOC: D.LD 01:58
PROVIDERS: ADMIT Obstetrics & Gynecology; ATTEND Obstetrics & Gynecology
PROC: 0UB70ZZ Excision of Bilateral Fallopian Tubes, Open Approach (ICD-10-PCS; principal; 2018-10-01 03:11)
PROC: 10D00Z1 Extraction of Products of Conception, Low, Open Approach (ICD-10-PCS; 2018-10-01 03:11)
DX: O34.211 Maternal care for low transverse scar from previous cesarean delivery (principal); O26.86 Pruritic urticarial papules and plaques of pregnancy (PUPPP); Z3A.38 38 weeks gestation of pregnancy; Z37.0 Single live birth; Z30.2 Encounter for sterilization; Z30.09 Encounter for other general counseling and advice on contraception; R51 Headache; O75.89 Other specified complications of labor and delivery; K21.9 Gastro-esophageal reflux disease without esophagitis

== ENCOUNTER 2020-10-13 09:00 | Day surgery (SDC) | payer MEDICAID ==
[2020-10-10 11:46] LABS: BASOPHILS 0.5 % (0-2); HEMOGLOBIN 12.3 g/dL (12-16); MCH 25.1 pg (26.0-34.0); MCHC 32.4 g/dL (31.0-37.0); MCV 77.3 fL (80.0-100.0); MEAN PLATELET VOLUME 7.7 fL (7.4-10.4); MONOCYTES 7.7 % (2-11); NEUTROPHILS 62.8 % (40-80); RBC 4.91 10x6/uL (4.00-5.40); RDW 15.4 % (11.5-14.5)
[2020-10-10 11:47] LABS: PLATELET COUNT 365 10x3/uL (130-400)
[~2020-10-13] VITALS: Ht 152.4 cm; Wt 117.9 kg
--- NOTE | ~2020-10-13 | OP ---
PATIENT NAME: DESTINEE KIM MEDICAL RECORD: [id number] :89 LOCATION:[facility] ADMISSION DATE: SURGEON: BISI MOSER MD DATE OF OPERATION: 10/13/2020 PREOPERATIVE DIAGNOSES: 1. Endometrial thickening refractory to medical therapy. 2. History of PCOS. POSTOPERATIVE DIAGNOSES: 1. Endometrial thickening refractory to medical therapy. 2. History of PCOS. PROCEDURE: Hysteroscopy, dilation and curettage and NovaSure endometrial ablation. SURGEON: Bisi Moser M.D. ANESTHESIA: General endotracheal. INTRAVENOUS FLUIDS: Per anesthesia record. HYSTEROSCOPIC FLUID LOSS: Less than 100 mL of 0.9 normal saline. SPECIMENS: Endometrial curettings. FINDINGS: 1. Grossly normal-appearing external genitalia and cervix. 2. Proliferative appearing endometrium. COMPLICATIONS: None apparent. PROCEDURE: The patient was taken to the operating room where general anesthesia was achieved without difficulty. The patient was then prepped and draped in normal sterile fashion in the dorsal lithotomy position in the [facility]. The bladder was drained of approximately 100 mL of straw colored urine. At this point, a Graves speculum was placed into the vagina and the cervix was identified and grasped on its anterior lip with a single tooth tenaculum. The patient sounded to approximately 10 cm. Dilation was performed approximately 5 mm. The hysteroscope was placed into the endometrial canal and survey of the endometrium was performed. The hysteroscope was then removed and the patient was dilated to approximately 7 mm, at which point a curettage was performed with #1 curette. Following curetting the NovaSure ablation device was then calibrated to the length and width was placed into the uterus without difficulty. Vacuum recheck was successful times 2 and burn cycle was achieved without difficulty. Following release of the NovaSure device using the bow and arrow method no bleeding was noted from the cervical os. The tenaculum was then removed. The patient tolerated the procedure well and was transferred to postanesthesia recovery stable without incident. TRANSINT:[id number] Voice Confirmation ID: [id number] DOCUMENT ID: [id number] OPERATIVE REPORT [id number] DESTINEE KIM BISI MOSER MD CC: [id number] DICTATION DATE: 10/24/20316 PSYCHODRAMATIST: 10/24/20 0344 [facility] 10/13/20 [facility] [address] [place] [address]
[~2020-10-13 09:00] MED LIST changes: +HYDROCODON-ACE1 EA10 PO; +IBUPROFEN600 MG PO
[2020-10-13 09:32] VITALS: BP 151/87; Ht 152.4 cm; Wt 117.9 kg
[2020-10-13 09:36] LABS: HCG URINE NEGATIVE (NEGATIVE)
--- NOTE | 2020-10-13 16:37 | NUR ---
1535 IV D/C'D WITH TIP INTACT. PATIENT UP TO BATHROOM TO VOID.
--- NOTE | 2020-10-13 16:38 | NUR ---
1615 - DISCHARGED VIA WHEELCHAIR TO PRIVATE CAR.
== END 2020-10-13 16:15 | disposition home or self-care (01) ==
LOC: D.OPS 09:00
PROVIDERS: ATTEND Obstetrics & Gynecology
DX: E28.2 Polycystic ovarian syndrome (principal); R93.89 Abnormal findings on diagnostic imaging of other specified body structures; F32.9 Major depressive disorder, single episode, unspecified